=== PATIENT | female | born 1990 | race Caucasian/White ===

== ENCOUNTER 2017-06-28 10:17 | Emergency (ER) | payer OTHER ==
[~2017-06-28] VITALS: Ht 154.9 cm; Wt 79.4 kg
== END 2017-06-28 12:45 | disposition home or self-care (01) ==
LOC: ED 10:17
DX: R55 Syncope and collapse (principal); Z88.0 Allergy status to penicillin
CPT/HCPCS: 36415; 80053; 85025; 99283

== ENCOUNTER 2020-01-30 05:55 | Day surgery (SDC) | payer OTHER ==
[~2020-01-30] VITALS: Ht 154.9 cm; Wt 58.1 kg
--- NOTE | 2020-01-30 09:01 | NUR ---
01/30/20 0901 Micaela,Gretchen 2819 PT ARRIVED WITH ORAL AIRWAY PLACE, VSS, PT ON 6L VIA MASK. PT NONAROUSABLE.
--- NOTE | 2020-01-30 11:24 | NUR ---
DURING STAY PT NON VERBAL STEP MOM MAREK GAVE INFORMATION AND INTERPRETED FOR PT. PT WAS CALM AND COOPERATIVE DURING STAY.
== END 2020-01-30 10:55 | disposition home or self-care (01) ==
LOC: OPS 05:55 → DS 05:55 → OPS 06:45
PROVIDERS: Dentist
PROC: 0CRXXJ1 Replacement of Lower Tooth, Multiple, with Synthetic Substitute, External Approach (ICD-10-PCS; 2020-01-30)
PROC: 0CRWXJ0 Replacement of Upper Tooth, Single, with Synthetic Substitute, External Approach (ICD-10-PCS; 2020-01-30)
PROC: 0CDXXZ0 Extraction of Lower Tooth, Single, External Approach (ICD-10-PCS; principal; 2020-01-30 06:45)
DX: K05.10 Chronic gingivitis, plaque induced (principal); K03.6 Deposits [accretions] on teeth; K02.9 Dental caries, unspecified; Z88.0 Allergy status to penicillin
CPT/HCPCS: 00170; 70320; 84703; J0330; J1100; J2001; J2250; J2405; J2704; J3010; J7121